=== PATIENT | female | born 1950 ===

== ENCOUNTER 2019-09-25 06:00 | Inpatient (IN) | payer OTHER ==
[~2019-09-25] VITALS: Ht 162.6 cm; Wt 96.6 kg
[~2019-09-25 06:00] MED LIST: AMILODIPINE PO; AVAPRO300 MG PO; GLIPIZIDE XL10 MG PO; HORIZANT300 MG PO
[2019-09-26] MEDS ORDERED: AMLODIPINE BESYL5 MG PO (08:11)
[2019-09-26] MEDS ORDERED: SIMVASTATIN40 MG PO (08:12)
[2019-09-30] MEDS ORDERED: PERCOCET 5-3251 EACH PO (11:50)
[2019-09-30] MEDS ORDERED: DIAZEPAM2 MG PO (11:51)
== END 2019-09-30 12:57 | disposition home or self-care (01) | DRG 355 ==
LOC: CIR.AMB 06:00 → O/R 10:00 → EDSTATUS 10:00 → O/R 15:28 → SURH 15:28
PROVIDERS: ADMIT Surgery
PROC: 0WUF4JZ Supplement Abdominal Wall with Synthetic Substitute, Percutaneous Endoscopic Approach (ICD-10-PCS; principal; 2019-09-25 07:00)
DX: K43.0 Incisional hernia with obstruction, without gangrene (principal); I10 Essential (primary) hypertension; E11.65 Type 2 diabetes mellitus with hyperglycemia; Z79.4 Long term (current) use of insulin

== ENCOUNTER 2020-07-01 09:00 | Inpatient (IN) | payer OTHER ==
[~2020-07-01] VITALS: Ht 162.6 cm; Wt 81.6 kg
[~2020-07-01 09:00] MED LIST changes: +AMLODIPINE BESYL5 MG PO; +DIAZEPAM2 MG PO; +PERCOCET 5-3251 EACH PO; +SIMVASTATIN40 MG PO
[2020-07-01] MEDS ORDERED: FOLIC ACID0.8 M1 PO (13:25)
[2020-07-01] MEDS ORDERED: ANALPRAM HC 2.530 GM RECTAL (13:26)
[2020-07-12] MEDS ORDERED: HYOSCYAMINE0.125 M1 SL (14:33)
[2020-07-12] MEDS ORDERED: OXYC1TAB9 PO (14:33)
== END 2020-07-12 16:16 | disposition home or self-care (01) | DRG 336 ==
LOC: SURG 07-08 06:27 → O/R 07-08 06:27 → SURH 07-08 09:00 → SURG 07-08 19:44 → SURH 07-09 20:39
PROVIDERS: ADMIT Surgery; ATTEND Surgery
PROC: 0DN84ZZ Release Small Intestine, Percutaneous Endoscopic Approach (ICD-10-PCS; 2020-07-08)
PROC: 0WUF4JZ Supplement Abdominal Wall with Synthetic Substitute, Percutaneous Endoscopic Approach (ICD-10-PCS; principal; 2020-07-08 15:00)
DX: K43.6 Other and unspecified ventral hernia with obstruction, without gangrene (principal); K56.51 Intestinal adhesions [bands], with partial obstruction; I10 Essential (primary) hypertension; E11.9 Type 2 diabetes mellitus without complications; I12.9 Hypertensive chronic kidney disease with stage 1 through stage 4 chronic kidney disease, or unspecified chronic kidney disease; N18.2 Chronic kidney disease, stage 2 (mild)